=== PATIENT | female | born 1985 | race Caucasian/White ===

== ENCOUNTER 2019-07-03 10:42 | Emergency (ER) | payer OTHER ==
[~2019-07-03] VITALS: Ht 167.6 cm; Wt 90.7 kg
[~2019-07-03 10:42] MED LIST: CIPRO250 M1 PO; CIPROFLOXACIN500 M1 PO; NAPROSYN500 MG PO; NOHOMEMEDICATIONS; NORCO 5-325 TA1 EACH PO; ROBAXIN500 MG PO; SEASONALE1 EACH PO
[2019-07-03] MEDS ORDERED: PROAIR HFA8.5 GM INH (10:58)
[2019-07-03 11:39] LABS: INFLUENZA A ANTIGEN Negative (Negative); INFLUENZA B ANTIGEN Negative (Negative)
[2019-07-03 12:49] VITALS: BP 120/78
--- NOTE | 2019-07-03 15:22 | EKG ---
[place] [address] ELECTROCARDIOGRAM REPORT Name: GONZALO SAM Room: [facility]#: [id number] Admission: 07/03/19 Attend Phys: Discharge: 07/03/19 Date of : 81 Date of Service: 07/03/19 1109 Report #: [id number] THIS REPORT FOR: //name// [facility] ED Test Date: 2019-07-03 Test Time: 11:09:05 Pat Name: GONZALO SAM Department: Room: Gender: F [employer]: [facility] : 1985 Requested By: Miguel Allen Order Number: [id number] MD: Javier Vasques Measurements Intervals [place] Rate: 83 P: 33 MA: 150 QRS: 36 QRSD: 86 T: 34 QT: 351 QTc: 413 Interpretive Statements Sinus rhythm No previous ECG available for comparison Electronically Signed On 07-03-2019 15:21:33 CDT by Javier Vasques [email or web address] <ELECTRONICALLY SIGNED> By: Javier Vasques MD, [facility] 07/03/19 1521 1109 08 Javier Vasques MD, FACC /EPI
== END 2019-07-03 12:50 | disposition home or self-care (01) ==
LOC: M.ERS 10:42
PROVIDERS: Emergency Medicine Emergency Medical Services
DX: B34.9 Viral infection, unspecified (principal); J45.909 Unspecified asthma, uncomplicated; F17.210 Nicotine dependence, cigarettes, uncomplicated; Z90.49 Acquired absence of other specified parts of digestive tract; Z90.89 Acquired absence of other organs; Z88.0 Allergy status to penicillin

== ENCOUNTER 2020-02-22 11:23 | Emergency (ER) | payer OTHER ==
[~2020-02-22] VITALS: Ht 170.2 cm; Wt 81.7 kg
[~2020-02-22 11:23] MED LIST changes: +PROAIR HFA8.5 GM INH
[2020-02-22] MEDS ORDERED: SUPER THERAVIT1 EACH PO (11:37)
[2020-02-22 11:56] LABS: URINE BILIRUBIN NEGATIVE (Negative); URINE BLOOD TRACE (Negative); URINE CLARITY CLEAR; URINE COLOR YELLOW; URINE GLUCOSE-RANDOM NEGATIVE (Negative); URINE KETONES 2+ (Negative); URINE LEUKOCYTES-REFLEX NEGATIVE (Negative); URINE NITRITE-REFLEX NEGATIVE (Negative); URINE PROTEIN NEGATIVE (Negative); URINE SPECIFIC GRAVITY <= 1.005 (1.005-1.030); URINE UROBILINOGEN 0.2 E.U./dl (0.2-1.0)
[2020-02-22 12:08] LABS: HEMATOCRIT 43.7 % (37.0-47.0); HEMOGLOBIN 14.8 gm/dL (12.0-15.0); MCH 29.7 pg (26.0-34.0); MCHC 33.8 g/dL (28.0-37.0); MPV 7.3 fl. (7.2-11.1); RBC 4.97 mil/uL (4.20-5.00); RDW-CV 13.4 % (10.5-14.5); WBC 12.8 thou/uL (4.0-11.0)
[2020-02-22 12:17] LABS: CALCIUM 8.9 mg/dL (8.5-10.1); CREATININE 0.7 mg/dL (0.6-1.3); POTASSIUM 3.7 mmol/L (3.5-5.1)
[2020-02-22 12:21] LABS: ALBUMIN 4.2 g/dL (3.4-5.0); TOTAL BILIRUBIN 0.3 mg/dL (<0.1-1.0); TOTAL PROTEIN 8.1 g/dL (6.4-8.2)
[2020-02-22] MEDS ORDERED: ONDANSETRON HCL4 M2 PO (13:18)
[2020-02-22] MEDS ORDERED: NORCO 5-325 TA1 EAC2 PO (13:18)
[2020-02-22 13:55] VITALS: BP 109/79
== END 2020-02-22 13:55 | disposition home or self-care (01) ==
LOC: M.ERS 11:23
PROVIDERS: Emergency Medicine Emergency Medical Services
DX: R10.32 Left lower quadrant pain (principal); R19.7 Diarrhea, unspecified; J45.909 Unspecified asthma, uncomplicated; F17.210 Nicotine dependence, cigarettes, uncomplicated; Z90.49 Acquired absence of other specified parts of digestive tract; Z90.710 Acquired absence of both cervix and uterus; Z79.899 Other long term (current) drug therapy; Z88.0 Allergy status to penicillin

== ENCOUNTER 2020-12-07 11:14 | Emergency (ER) | payer OTHER ==
[~2020-12-07] VITALS: Ht 167.6 cm; Wt 86.2 kg
[~2020-12-07 11:14] MED LIST changes: +NORCO 5-325 TA1 EAC2 PO; +ONDANSETRON HCL4 M2 PO; +SUPER THERAVIT1 EACH PO
[2020-12-07] MEDS ORDERED: DITROPAN XL10 M1 PO (11:32)
[2020-12-07] MEDS ORDERED: URINARY MED (11:32)
[2020-12-07 11:38] LABS: URINE BILIRUBIN NEGATIVE (Negative); URINE BLOOD 1+ (Negative); URINE CLARITY CLEAR; URINE COLOR YELLOW; URINE GLUCOSE-RANDOM NEGATIVE (Negative); URINE KETONES NEGATIVE (Negative); URINE LEUKOCYTES-REFLEX NEGATIVE (Negative); URINE NITRITE-REFLEX NEGATIVE (Negative); URINE PROTEIN NEGATIVE (Negative); URINE UROBILINOGEN 0.2 E.U./dl (0.2-1.0)
[2020-12-07 11:44] LABS: BACTERIA-REFLEX 1-9 Few /HPF (None Seen); CASTS None Seen /LPF (None Seen); CRYSTALS None Seen /LPF (None Seen); SQUAMOUS >10 Many /LPF (0-3); URINE RBC 0-2 Rare /HPF (0-2)
[2020-12-07 11:45] LABS: URINE WBC-REFLEX 0-5 Rare /HPF (0-5)
[2020-12-07 12:15] VITALS: BP 141/70
== END 2020-12-07 12:15 | disposition home or self-care (01) ==
LOC: M.ERS 11:14
PROVIDERS: Nurse Practitioner Psychiatric/Mental Health
DX: B34.9 Viral infection, unspecified (principal); Z20.822 Contact with and (suspected) exposure to COVID-19; J45.909 Unspecified asthma, uncomplicated; F17.210 Nicotine dependence, cigarettes, uncomplicated; Z90.89 Acquired absence of other organs; Z90.49 Acquired absence of other specified parts of digestive tract; Z90.711 Acquired absence of uterus with remaining cervical stump; Z79.899 Other long term (current) drug therapy; Z88.0 Allergy status to penicillin